=== PATIENT | male | born 1995 | race Two or more races ===

== ENCOUNTER 2025-04-01 21:04 | Emergency (ER) | payer OTHER ==
[~2025-04-01] VITALS: Ht 162.6 cm; Wt 52.2 kg
[2025-04-01 22:29] LABS: BASOPHILS % (AUTO) 0.7 % (0.0-2.0); EOSINOPHILS # (AUTO) 0.1 K/uL (0.0-0.7); EOSINOPHILS % (AUTO) 2.1 % (0.0-6.0); HEMATOCRIT 42 % (39-51); HEMOGLOBIN 14.8 g/dL (13.5-17.5); LYMPHOCYTES % (AUTO) 45.7 % (20.0-44.0); MEAN CORPUSCULAR HEMOGLOBIN 31 PG (26.0-33.0); MEAN CORPUSCULAR HGB CONC 35 g/dl (31.0-36.0); MEAN CORPUSCULAR VOLUME 88 fL (80-96); MONOCYTES # (AUTO) 0.4 K/uL (0.1-1.30); MONOCYTES % (AUTO) 8.7 % (2.0-12.0); NEUTROPHILS # (AUTO) 1.9 K/uL (1.8-8.9); NEUTROPHILS % (AUTO) 42.8 % (43.0-81.0); PLATELET COUNT (AUTO) 203 K/uL (150-450); RED BLOOD CELL COUNT(AUTO) 4.82 MIL/uL (4.5-6.0); RED CELL DISTRIBUTION WIDTH 13.3 % (11.5-15.0); WHITE BLOOD COUNT (AUTO) 4.4 K/uL (4.3-11.0)
[2025-04-01 22:34] LABS: PARTIAL THROMBOPLASTIN TIME 25.4 SEC (24.3-34.3); PROTHROMBIN TIME 10.3 SECS (9.2-11.1)
[2025-04-01] MEDS ORDERED: SILVER NITRATE APPLICATOR 1 EA BOX ONE (23:16)
[2025-04-01] MEDS: SILVER NITRATE APPLICATOR 1 EA BOX TP ONE (23:20)
[2025-04-01 23:26] VITALS: BP 121/71; TEMP 98.5; O2SAT 99
[2025-04-02] MEDS ORDERED: OXYM15MI4 NS (18:13)
== END 2025-04-01 23:26 | disposition home or self-care (01) ==
LOC: ER 21:14
DX: R04.0 Epistaxis (principal); R42 Dizziness and giddiness
CPT/HCPCS: 36415; 85025-TC; 85730-TC

== ENCOUNTER 2025-04-02 17:49 | Emergency (ER) | payer OTHER ==
[~2025-04-02] VITALS: Ht 160 cm; Wt 52.2 kg
[2025-04-02] MEDS ORDERED: OXYMETAZOLINE HCL NASAL SPRAY 30 ML BOTTLE NS ONE (18:09)
[2025-04-02] MEDS: OXYMETAZOLINE HCL NASAL SPRAY 30 ML BOTTLE NS ONE (18:12)
[2025-04-02] MEDS ORDERED: OXYM15MI4 NS (18:13)
[2025-04-02 18:52] VITALS: BP 115/67; TEMP 98.1; O2SAT 100
== END 2025-04-02 18:53 | disposition home or self-care (01) ==
LOC: ER 17:49
DX: R04.0 Epistaxis (principal); Z60.2 Problems related to living alone